=== PATIENT | female | born 1930 | race Caucasian/White ===

== ENCOUNTER 2018-06-12 10:15 | Inpatient (IN) | payer OTHER ==
[~2018-06-12] VITALS: Ht 154.9 cm; Wt 69.9 kg
[~2018-06-12 10:15] MED LIST: NORVASC10 MG; SINGULAIR4 MG; TOPROL XL25 M1
[2018-06-12] MEDS ORDERED: TIROSINT25 MCG PO (10:27)
== END 2018-06-26 08:49 | disposition expired | DRG 64 ==
LOC: ER 10:15 → SEC-K 18:08 → MEDI 06-13 10:39 → ICU 06-16 02:55
PROC: 3E0F7GC Introduction of Other Therapeutic Substance into Respiratory Tract, Via Natural or Artificial Opening (ICD-10-PCS; 2018-06-12)
PROC: 4A033R1 Measurement of Arterial Saturation, Peripheral, Percutaneous Approach (ICD-10-PCS; 2018-06-12)
PROC: BW28ZZZ Computerized Tomography (CT Scan) of Head (ICD-10-PCS; 2018-06-12)
PROC: B345ZZZ Ultrasonography of Bilateral Common Carotid Arteries (ICD-10-PCS; 2018-06-12)
PROC: B348ZZZ Ultrasonography of Bilateral Internal Carotid Arteries (ICD-10-PCS; 2018-06-12)
PROC: B246ZZZ Ultrasonography of Right and Left Heart (ICD-10-PCS; 2018-06-12)
PROC: 5A1955Z Respiratory Ventilation, Greater than 96 Consecutive Hours (ICD-10-PCS; principal; 2018-06-13)
PROC: 0BH17EZ Insertion of Endotracheal Airway into Trachea, Via Natural or Artificial Opening (ICD-10-PCS; 2018-06-13)
PROC: 4A12X4Z Monitoring of Cardiac Electrical Activity, External Approach (ICD-10-PCS; 2018-06-13)
PROC: B020ZZZ Computerized Tomography (CT Scan) of Brain (ICD-10-PCS; 2018-06-14)
PROC: 02HV33Z Insertion of Infusion Device into Superior Vena Cava, Percutaneous Approach (ICD-10-PCS; 2018-06-19)
PROC: 5A09557 Assistance with Respiratory Ventilation, Greater than 96 Consecutive Hours, Continuous Positive Airway Pressure (ICD-10-PCS; 2018-06-21)
DX: I63.59 Cerebral infarction due to unspecified occlusion or stenosis of other cerebral artery (principal); J96.01 Acute respiratory failure with hypoxia; J69.0 Pneumonitis due to inhalation of food and vomit; J96.02 Acute respiratory failure with hypercapnia; R65.21 Severe sepsis with septic shock; A41.1 Sepsis due to other specified staphylococcus; G81.94 Hemiplegia, unspecified affecting left nondominant side; J91.8 Pleural effusion in other conditions classified elsewhere; E87.2 Acidosis; B37.0 Candidal stomatitis; J45.41 Moderate persistent asthma with (acute) exacerbation; R47.81 Slurred speech; I10 Essential (primary) hypertension; E03.8 Other specified hypothyroidism; E66.8 Other obesity; Z66 Do not resuscitate; B96.89 Other specified bacterial agents as the cause of diseases classified elsewhere; Z78.1 Physical restraint status